=== PATIENT | female | born 2000 | race African-American/Black ===

== ENCOUNTER 2021-01-17 16:12 | Inpatient (IN) | payer OTHER ==
[~2021-01-17] VITALS: Ht 157.5 cm; Wt 62.5 kg
[2021-01-17] MEDS ORDERED: CHARCOAL ACTIVATED LIQUID 25 GM/120 ML BTL As Ordered ONE (16:28)
[2021-01-17] MEDS ORDERED: CHARCOAL ACTIVATED LIQUID 25 GM/120 ML BTL PO ONE (16:45)
[2021-01-17 17:03] LABS: BASO % 0.6 % (0.0-1.0); EOS # 0.2 10^3/uL (0.0-0.5); HEMATOCRIT 36.2 % (36.0-47.0); HEMOGLOBIN 11.7 g/dl (12.0-15.5); LYMPH # 2.9 10^3/uL (1.5-5.0); LYMPH % 43.2 % (24.0-44.0); MEAN CORPUSCULAR HEMOGLOBIN 28.3 pg (27.0-33.0); MEAN CORPUSCULAR HGB CONC 32.3 g/dl (32.0-36.5); MEAN CORPUSCULAR VOLUME 87.4 fl (80.0-96.0); MONO # 0.6 10^3/uL (0.0-0.8); MONO % 8.2 % (2.0-8.0); NEUTROPHILS % 44.7 % (36.0-66.0); PLATELET COUNT, AUTOMATED 309 10^3/uL (150-450); RED BLOOD COUNT 4.14 10^6/uL (4.00-5.40); WHITE BLOOD COUNT 6.7 10^3/uL (4.0-10.0)
[2021-01-17 17:04] LABS: HCG, SERUM QUALITATIVE NEGATIVE (NEGATIVE)
[2021-01-17] MEDS ORDERED: DEXTROSE 50% 50 ML SYRINGE IV STA (17:11)
[2021-01-17] MEDS ORDERED: ONDANSETRON 4MG/2ML VIAL IV ONE (17:15)
[2021-01-17 17:22] LABS: ACETAMINOPHEN LEVEL < 2.0 UG/ML (10.0-30.0); ALBUMIN 3.9 GM/DL (3.2-5.2); ALT/SGPT 30 U/L (12-78); BILIRUBIN,DIRECT < 0.1 MG/DL (0.0-0.2); BILIRUBIN,TOTAL 0.2 MG/DL (0.2-1.0); BLOOD UREA NITROGEN 11 MG/DL (7-18); CALCIUM LEVEL 8.9 MG/DL (8.5-10.1); CARBON DIOXIDE LEVEL 24 MEQ/L (21-32); CHLORIDE LEVEL 110 MEQ/L (98-107); CPK CREATINE PHOSPHOKINASE 284 U/L (26-192); CREATININE FOR GFR 0.73 MG/DL (0.55-1.30); ETHYL ALCOHOL (ETHANOL) 0.005 % (0.000-0.010); GLUCOSE, FASTING 79 MG/DL (70-100); POTASSIUM SERUM 3.7 MEQ/L (3.5-5.1); SALICYLATE LEVEL < 1.7 MG/DL (5.0-30.0); SODIUM LEVEL 140 MEQ/L (136-145); THYROID STIMULATING HORMONE 0.614 uIU/ML (0.463-3.98); TOTAL PROTEIN 7.8 GM/DL (6.4-8.2)
[2021-01-17 17:50] LABS: AMPHETAMINES LEVEL URINE NEGATIVE (NEGATIVE); BARBITURATES URINE NEGATIVE (NEGATIVE); BENZODIAZEPINES URINE NEGATIVE (NEGATIVE); CANNABINOIDS URINE POSITIVE (NEGATIVE); COCAINE METABOLITE URINE NEGATIVE (NEGATIVE); METHADONE URINE NEGATIVE (NEGATIVE); OPIATES URINE NEGATIVE (NEGATIVE); PHENCYCLIDINE URINE NEGATIVE (NEGATIVE)
[2021-01-17 18:10] LABS: RSV AMPLIFICATION NEGATIVE (NEGATIVE)
[2021-01-17] MEDS ORDERED: D5W/0.9% SODIUM CHLORIDE 1,000 ML IV SCH (18:30)
--- NOTE | 2021-01-17 20:08 | ECGEPIP ---
[facility] - ED Test Date: 2021-01-17 Pat Name: HOLLIE MATHEW Department: Room: - Gender: Female [employer]: braulio : 2000 Requested By: Mick Marshall Order Number: [id number] Reading MD: Irena Mallory Measurements Intervals [place] Rate: 107 P: 65 AR: 146 QRS: 31 QRSD: 78 T: 15 QT: 342 QTc: 456 Interpretive Statements Sinus tachycardia NSTTW abnormalities No prior Electronically Signed on 01-17-2021 20:08:04 EDT by Irena Mallory
[2021-01-18] MEDS ORDERED: traZODone 50 MG TAB PO PRN (15:20)
[2021-01-18] MEDS ORDERED: MAALOX 30 ML SUSP *UDC PO PRN (15:20)
[2021-01-18] MEDS ORDERED: MOM 30ML SUSPENSION UDC PO PRN (15:20)
[2021-01-18] MEDS: ACETAMINOPHEN TAB 650MG DOSE (2X325MG) PO PRN (18:52)
[2021-01-19 06:32] VITALS: BP 106/58
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
[2021-01-19] MEDS: ACETAMINOPHEN TAB 650MG DOSE (2X325MG) PO PRN (12:51)
[2021-01-19 16:23] VITALS: BP 107/72
[2021-01-19] MEDS ORDERED: hydrOXYzine 25 MG TAB PO PRN (19:20)
[2021-01-19] MEDS ORDERED: IBUPROFEN 600MG TAB PO PRN (19:20)
[2021-01-19] MEDS ORDERED: SERTRALINE HCL 25 MG TABLET PO ONE (21:00)
[2021-01-20 07:11] VITALS: BP 125/62
[2021-01-20] MEDS ORDERED: HYDR-3363 PO (09:38)
[2021-01-20] MEDS ORDERED: ZOLO50TA PO (09:41)
[2021-01-20] MEDS ORDERED: SERTRALINE HCL 50 MG TAB PO ONE (09:50)
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
== END 2021-01-20 11:30 | disposition home or self-care (01) | DRG 882 ==
LOC: M ED 16:12 → M ED INP 01-18 15:18 → M PSY 01-18 16:45
PROVIDERS: ADMIT Psychiatry & Neurology Psychiatry; ATTEND Psychiatry & Neurology Psychiatry
DX: F43.25 Adjustment disorder with mixed disturbance of emotions and conduct (principal); F12.10 Cannabis abuse, uncomplicated; F41.9 Anxiety disorder, unspecified; T45.0X2A Poisoning by antiallergic and antiemetic drugs, intentional self-harm, initial encounter; Z60.9 Problem related to social environment, unspecified

== ENCOUNTER 2021-05-12 10:46 | Emergency (ER) | payer OTHER ==
[~2021-05-12] VITALS: Ht 157.5 cm; Wt 62.5 kg
[~2021-05-12 10:46] MED LIST: HYDR-3363 PO; ZOLO50TA PO
[2021-05-12 10:47] VITALS: BP 105/59
[2021-05-12] MEDS ORDERED: SERT50TA29 (11:00)
[2021-05-12] MEDS ORDERED: XULA1DIS (11:00)
[2021-05-12] MEDS ORDERED: HYDR-4570 (11:00)
[2021-05-12] MEDS ORDERED: BUSP10TA (11:00)
[2021-05-12 11:49] LABS: HEMATOCRIT 34.8 % (36.0-47.0); HEMOGLOBIN 11.3 g/dl (12.0-15.5); MEAN CORPUSCULAR HEMOGLOBIN 28.1 pg (27.0-33.0); MEAN CORPUSCULAR HGB CONC 32.5 g/dl (32.0-36.5); MEAN CORPUSCULAR VOLUME 86.6 fl (80.0-96.0); PLATELET COUNT, AUTOMATED 261 10^3/uL (150-450); RED BLOOD COUNT 4.02 10^6/uL (4.00-5.40); WHITE BLOOD COUNT 4.6 10^3/uL (4.0-10.0)
[2021-05-12 12:13] LABS: HCG, SERUM QUALITATIVE NEGATIVE (NEGATIVE)
[2021-05-12 12:16] LABS: ALBUMIN 3.7 GM/DL (3.2-5.2); ALT/SGPT 24 U/L (12-78); BILIRUBIN,TOTAL 0.2 MG/DL (0.2-1.0); BLOOD UREA NITROGEN 11 MG/DL (7-18); CARBON DIOXIDE LEVEL 27 MEQ/L (21-32); CHLORIDE LEVEL 108 MEQ/L (98-107); CREATININE FOR GFR 0.74 MG/DL (0.55-1.30); GLUCOSE, FASTING 74 MG/DL (70-100); LIPASE 130 U/L (73-393); POTASSIUM SERUM 4.6 MEQ/L (3.5-5.1); SODIUM LEVEL 142 MEQ/L (136-145); TOTAL PROTEIN 7.4 GM/DL (6.4-8.2)
[2021-05-12] MEDS ORDERED: GI COCKTAIL 50ML BTL(HYOSCYAMINE/MAALOX/LIDOCAINE VISCOUS)(1:3:1) PO ONE (12:25)
[2021-05-12] MEDS ORDERED: ONDANSETRON 4 MG ORAL DISINTEGRATING TAB PO ONE (12:25)
--- NOTE | 2021-05-12 13:27 | REP ---
INDICATION: llq pain/pelvic pain. COMPARISON: None. TECHNIQUE: Transabdominal and endovaginal probes were utilized. FINDINGS: The bladder measured 7.5 x 3.5 x 3 cm. The uterus is anteverted it is 6.9 by 2.7 x 4 cm in greatest diameter. The central endometrial echogenic stripe has a thickness of 2.4 mm. See no definite fluid the endometrial cavity or intra cervical canal. No nodule or mass. Uterus without a contour abnormality. I see no free fluid in the cul-de-sac. The left ovary is a 3.4 x 1.7 x 2 cm. Has a a subcentimeter follicle evident. Doppler tracing shows resistive index is 0.65. There is color flow in the ovary without adjacent mass or fluid. The right ovary is 5.1 x 2.8 x 3.3 cm. Within it is a 2.9 x 2.6 x 2.1 cm simple cyst. Has no internal echoes or color flow in that lesion. There is color flow in the ovary and Doppler tracing shows resistive index of 0.52, normal. No fluid adjacent to that right ovary or in the cul-de-sac. IMPRESSION: 1. There is a 2.9 x 2.6 x 2.1 cm simple cyst in the right ovary without adjacent free fluid in the ovary or cul-de-sac. Normal blood flow to both ovaries and no evidence of torsion. 2. Left ovary unremarkable. 3. Uterus and endometrial stripe normal. <Electronically signed by Arvind Oliveira > 05/12/21 1350
[2021-05-12] MEDS ORDERED: PEPC1TAB5 PO (13:47)
== END 2021-05-12 13:58 | disposition home or self-care (01) ==
LOC: M ED 10:46
DX: K21.9 Gastro-esophageal reflux disease without esophagitis (principal); N83.201 Unspecified ovarian cyst, right side; F33.9 Major depressive disorder, recurrent, unspecified; F41.9 Anxiety disorder, unspecified; Z79.899 Other long term (current) drug therapy; Z79.3 Long term (current) use of hormonal contraceptives
CPT/HCPCS: 36415; 76830; 76856; 80053; 81001; 83690; 84703; 85027; 93976; 99282; Q0162